=== PATIENT | female | born 1990 | race African-American/Black ===

== ENCOUNTER 2018-06-08 08:00 | Observation (INO) | payer MEDICAID ==
[2018-06-08] MEDS ORDERED: PREN-96 PO (08:46)
[2018-06-08] MEDS ORDERED: LABE100T4 PO (08:46)
== END 2018-06-08 08:35 | disposition home or self-care (01) | DRG 566 ==
LOC: LDRP 08:00
PROVIDERS: ADMIT Specialist; ATTEND Specialist
DX: O26.893 Other specified pregnancy related conditions, third trimester (principal); R10.9 Unspecified abdominal pain; Z3A.29 29 weeks gestation of pregnancy
CPT/HCPCS: 59025; 81002; G0378

== ENCOUNTER 2019-04-11 12:28 | Emergency (ER) | payer MEDICAID ==
[~2019-04-11] VITALS: Ht 162.6 cm; Wt 95.3 kg
[~2019-04-11 12:28] MED LIST: LABE100T4 PO; PREN-96 PO
[2019-04-11] MEDS ORDERED: LABETALOL HCL 200 MG TAB PO ONE (13:00)
[2019-04-11 13:35] LABS: Basophils # (auto) 0.1 uL; Eosinophils # (auto) 0.1 uL; Eosinophils % (auto) 0.7 % (0.0-7.0); Lymphocytes # (auto) 1.7 uL
[2019-04-11 13:36] LABS: Basophils % (auto) 1.3 % (0.0-2.0); Hemoglobin 12.8 g/dL (12.2-16.2); Lymphocytes % (auto) 18.1 % (10.0-50.0); Mean Corpuscular Hgb Conc. 32.8 g/dL (32.0-36.0); Monocytes # (auto) 0.5 uL; Monocytes % (auto) 5.5 % (0.0-12.0); Neutrophils # (auto) 6.8 uL; Neutrophils % (auto) 74.4 % (37.0-80.0); Platelet Count (auto) 292 10^3/uL (140-450); Red Blood Cells 4.94 10^6/uL (4.0-5.20); Red Cell Distribution Width 12.9 % (11.8-14.3); White Blood Cell 9.2 10^3/uL (4.4-10.8)
[2019-04-11 15:30] VITALS: BP 153/93
[2019-04-11] MEDS ORDERED: ONDANSETRON HCL 4 MG/2 ML VIAL IV ONE (15:30)
[2019-04-11] MEDS ORDERED: MORPHINE SULFATE 4 MG/ML SYR/VIAL IV ONE (15:30)
== END 2019-04-11 16:16 | disposition home or self-care (01) ==
LOC: ER 12:28 → EEVIPCON 12:28 → ER 16:14
DX: N92.0 Excessive and frequent menstruation with regular cycle (principal)
CPT/HCPCS: 36415; 76856; 84702; 85025; 96374; 96375; 99284; J2270; J2405

== ENCOUNTER → 2019-11-21 | Outpatient (CLI) | payer OTHER | END | disposition home or self-care (01) | LOC: LAB 12:40 | PROVIDERS: ATTEND Nurse Practitioner Family | DX: Z20.828 Contact with and (suspected) exposure to other viral communicable diseases (principal) ==

== ENCOUNTER → 2019-11-27 | Outpatient (CLI) | payer OTHER | END | disposition home or self-care (01) | LOC: LAB 08:58 | PROVIDERS: ATTEND Nurse Practitioner Family | DX: Z03.818 Encounter for observation for suspected exposure to other biological agents ruled out (principal) ==

== ENCOUNTER 2020-07-14 06:08 | Emergency (ER) | payer MEDICAID, OTHER ==
[~2020-07-14] VITALS: Ht 162.6 cm; Wt 108.0 kg
[2020-07-14 07:28] LABS: Eosinophils # (auto) 0.1 10 ^3/uL (0-0.8); Hemoglobin 12.6 g/dL (12.2-16.2)
[2020-07-14 07:30] LABS: Basophils # (auto) 0 10 ^3/uL (0-0.2); Basophils % (auto) 0.5 % (0.0-2.0); Eosinophils % (auto) 0.7 % (0.0-7.0); Hematocrit 38.6 % (36.0-46.0); Lymphocytes # (auto) 1.3 10 ^3/uL (0.4-5.4); Lymphocytes % (auto) 16.7 % (10.0-50.0); Mean Corpuscular Hemoglobin 25.4 pg (28.0-32.0); Mean Corpuscular Hgb Conc. 32.6 g/dL (32.0-36.0); Mean Corpuscular Volume 77.9 fL (80.0-100.0); Monocytes # (auto) 0.6 10 ^3/uL (0-1.3); Monocytes % (auto) 6.8 % (0.0-12.0); Neutrophils # (auto) 6.1 10 ^3/uL (1.6-8.6); Neutrophils % (auto) 75.3 % (37.0-80.0); Nucleated Red Blood Cells % 0.2 %; Platelet Count (auto) 265 10^3/uL (140-450); Red Blood Cells 4.95 10^6/uL (4.0-5.20); Red Cell Distribution Width 14.3 % (11.8-14.3); White Blood Cell 8.1 10^3/uL (4.4-10.8)
[2020-07-14] MEDS ORDERED: SODIUM CHLORIDE 0.9% 500 ML IV ONE (07:30)
[2020-07-14 07:33] LABS: Urine Bacteria NONE SEEN /hpf (None Seen); Urine Blood 3+ /uL (Negative); Urine WBC 113 /hpf (0 - 5)
[2020-07-14 07:45] LABS: Albumin 3.5 g/dL (3.4-5.0); Calcium 8.7 mg/dL (8.5-10.1); Potassium 3.7 mmol/L (3.5-5.1)
[2020-07-14] MEDS ORDERED: CEPHALEXIN 250 MG CAP PO ONE (07:45)
[2020-07-14 07:48] LABS: BUN/Creatinine Ratio 14.1; Bilirubin, Total 0.7 mg/dL (0.2-1.0); Total Protein 7.2 g/dL (6.4-8.2)
[2020-07-14 10:00] VITALS: BP 155/88
== END 2020-07-14 10:43 | disposition home or self-care (01) ==
LOC: ER 06:08 → EEVIPCON 06:08 → ER 10:43
DX: N39.0 Urinary tract infection, site not specified (principal); I10 Essential (primary) hypertension; D21.9 Benign neoplasm of connective and other soft tissue, unspecified; Z79.899 Other long term (current) drug therapy
CPT/HCPCS: 36415; 76801; 76817; 80053; 81001; 84702; 85025; 96360; 99284; J7030

== ENCOUNTER 2021-04-06 17:29 | Observation (INO) | payer MEDICAID ==
[~2021-04-06] VITALS: Ht 162.6 cm; Wt 99.8 kg
[2021-04-06] MEDS ORDERED: ONDANSETRON HCL 4 MG/2 ML VIAL IV PRN (18:30)
[2021-04-06] MEDS ORDERED: LACTATED RINGER'S 1,000 ML IV ONE (18:30)
[2021-04-06] MEDS ORDERED: hydrALAZINE HCL 20 MG/ML VL IV ONE (18:30)
[2021-04-06] MEDS ORDERED: hydrALAZINE HCL 20 MG/ML VL ONE (19:06)
[2021-04-06] MEDS ORDERED: ONDANSETRON HCL 4 MG/2 ML VIAL ONE (19:06)
== END 2021-04-06 21:53 | disposition home or self-care (01) ==
LOC: LDRP 17:29 → EEVIPCON 17:29
PROVIDERS: ADMIT Obstetrics & Gynecology; ATTEND Obstetrics & Gynecology
DX: O21.2 Late vomiting of pregnancy (principal); Z20.822 Contact with and (suspected) exposure to COVID-19; O26.892 Other specified pregnancy related conditions, second trimester; E86.0 Dehydration; O10.912 Unspecified pre-existing hypertension complicating pregnancy, second trimester; Z3A.22 22 weeks gestation of pregnancy
CPT/HCPCS: 36415; 59025; 81002; 87426; 94760; 96361; 96374; 96375; G0378; G0379; J0360; J2405; 96360